=== PATIENT | female | born 1945 | race Caucasian/White ===

== ENCOUNTER 2022-07-27 20:31 | Emergency (ER) | payer MEDICARE, OTHER ==
[2022-07-27] MEDS ORDERED: Adacel Vial IM ONE ×2 (21:51→21:58)
[2022-07-27 21:53] VITALS: BP 171/82; PULSE 71; O2SAT 94
--- NOTE | 2022-07-27 22:24 | ERPHSYRPT ---
- History of Present Illness Source: patient Exam Limitations: no limitations Patient Subjective Stated Complaint: pt states "I was walking down the stairs and lost my balance, I grabbed the rail and there was a bolt sticking out and I cut my finger on it. This happened around 230 this afternoon. I cleaned it, put neosporin on it, and applied bandage. Triage Nursing Assessment: pt ambulated into room 5 after standing on scales for weight acquisition. pt is alert and oriented times three, able to move all extremities. gait is independent, slow and steady, resp even and unlabored, and pt is able to speak in complete sentences. left ring finger skin tear approx 1.5cm x 0.3, bruising noted around skin tear, no active bleeding, dried blood on removed bandage. Physician History: 77 yo WF w L 4th digit ventral skin tear which occurred at home on an exposed bolt on a handrail at 14:30 today. Pain is mild, and other injuries are denied. She will be given a Tdap in ER. Occurred: just prior to arrival Method of Injury: other (Finger vs bolt) Quality: constant Severity of Pain-Max: mild Severity of Pain-Current: mild Extremities Pain Location: 4th finger: left Modifying Factors: Improves With: movement Associated Symptoms: none Allergies/Adverse Reactions: No Known Drug Allergies Allergy (Unverified 08/27/19 10:28) Home Medications: Aspirin 81 gm Chew [Baby Aspirin 81 mg Chew] 81 mg PO DAILY 10/09/16 [History] Cholecalciferol (Vitamin D3) [Vitamin D3] 2,000 unit PO DAILY 10/09/16 [History] Multivitamin [Multivitamins] 1 each PO DAILY 10/09/16 [History] Ubidecarenone [Coq10] 50 mg PO DAILY 10/09/16 [History] methIMAzole [Northyx] 5 mg PO DAILY 10/09/16 [History] Alirocumab [Praluent Pen] 150 mg SQ WEEKLY 08/27/19 [History] Omeprazole 40 mg PO DAILY 08/27/19 [History] Dapagliflozin Propanediol [Farxiga] 10 mg PO DAILY 07/27/22 [History] Prednisone 10 mg [Deltasone 10 mg] 10 mg PO DAILY 07/27/22 [History] Propranolol HCl [Propranolol HCl ER] 80 mg PO DAILY 07/27/22 [History] Hx Tetanus, Diphtheria Vaccination/Date Given: Yes Hx Influenza Vaccination/Date Given: Yes Hx Pneumococcal Vaccination/Date Given: Yes Immunizations Up to Date: Yes Travel Risk - International Travel Have you traveled outside of the country in past 3 weeks: No - Coronavirus Screening Are you exhibiting any of the following symptoms?: No Close contact with a COVID-19 positive Pt in past 14-21 Days: No - Vaccine Status Have you recieved a Covid-19 vaccination: Yes Medical Instructor: Moderna - Vaccination Dates Date of 2cond Vaccination (if applicable): 2020 - Review of Systems Constitutional: No Symptoms Eyes: No Symptoms Ears, Nose, & Throat: No Symptoms Respiratory: No Symptoms Abdominal/Gastrointestinal: No Symptoms Genitourinary Symptoms: No Symptoms Skin: No Symptoms Neurological: No Symptoms Psychological: No Symptoms Endocrine: No Symptoms Hematologic/Lymphatic: No Symptoms Immunological/Allergic: No Symptoms - Past Medical History Pertinent Past Medical History: Yes Neurological History: No Pertinent History ENT History: No Pertinent History Cardiac History: High Cholesterol, Hypertension Respiratory History: No Pertinent History Endocrine Medical History: Hypothyroidism Musculoskeletal History: Osteoarthritis GI Medical History: GERD, Other History: No Pertinent History Psycho-Social History: No Pertinent History Female Reproductive Disorders: Breast Cancer Other Medical History: B TKA, R toe numbness with prolonged standing. History of L hip bursitis, - Past Surgical History Past Surgical History: Yes Neuro Surgical History: No Pertinent History Cardiac: No Pertinent History Respiratory: No Pertinent History Gastrointestinal: Cholecystectomy Genitourinary: No Pertinent History Musculoskeletal: Joint Replacement Female Surgical History: Mastectomy Other Surgical History: bilateral mastectomy lymph node bx not radical. right knee replacement and left knee replacement,colonoscopy and EGD, - Social History Smoking Status: Never smoker Exposure to second hand smoke: No Drug Use: none Patient Lives Alone: No - Nursing Vital Signs Nursing Vital Signs: Initial Vital Signs Temperature 97.5 F 07/27/22 21:42 Pulse Rate 71 07/27/22 21:42 Respiratory Rate 18 07/27/22 21:42 Blood Pressure 171/82 07/27/22 21:42 O2 Sat by Pulse Oximetry 94 L 07/27/22 21:42 Pain Scale Pain Intensity 2 Hypertensive - Physical Exam General Appearance: no apparent distress Eyes, Ears, Nose, Throat Exam: normal ENT inspection, TMs normal, pharynx nor mal, moist mucous membranes Neck Exam: normal inspection, non-tender, supple, full range of motion, No Brudzinski, No Kernig's, No meningismus Cardiovascular/Respiratory Exam: normal breath sounds, regular rate/rhythm, heart sounds normal Abdominal Exam: non-tender, soft Back Exam: normal inspection, No vertebral tenderness Shoulder Exam: normal inspection, non-tender, no evidence of injury Elbow/Forearm Exam: normal inspection, non-tender, no evidence of injury Wrist Exam: normal inspection, non-tender, no evidence of injury Hand Exam: laceration (Superficial skin tear L ventral 4th digit/Good hemostasis/Good distal capillary return and sensation/FROM) Mental Status Exam: alert, oriented x 3, cooperative Skin Exam: normal color, warm, dry SpO2 Interpretation: normal SpO2: 94 O2 Delivery: Room Air Procedures - Laceration/Wound Repair Left Volar Finger Wound Location: Left Wound Length (cm): 1 Wound's Depth, Shape: superficial (Skin tear) Wound Explored: clean Wound Repaired With: Steri-strips (Per nursing/NVI) - Course Nursing assessment & vital signs reviewed: Yes Ordered Tests: Medication Summary Discontinued Medications Generic Name Dose Route Start Last Admin Trade Name Freq PRN Reason Stop Dose Admin Diphtheria/Tetanus/Acell Pertussis 0.5 ml 07/27/22 21:51 07/27/22 22:12 Tdap --Diph,Pertuss(Acell),Tet Vac/Pf 0.5 Ml Vial IM 07/27/22 21:52 0.5 ml .ONCE ONE Administration Diphtheria/Tetanus/Acell Pertussis Confirm 07/27/22 21:58 Tdap --Diph,Pertuss(Acell),Tet Vac/Pf 0.5 Ml Vial Administered 07/27/22 21:59 Dose 0.5 ml IM .STK-MED ONE - Progress Progress: improved Progress Note: 07/27/22 23:53 Nursing note and vital signs reviewed No food or housing insecurities noted Laceration is a superficial skin tear Steri-stripped per nursing/NVI Tdap given Counseled pt/family regarding: diagnosis, need for follow-up Medical Desision Making - Risk of complications Low Risk: Low risk of morbidity from additional dx testing or treatment - Departure Departure Disposition: Home Clinical Impression: Skin tear Condition: Stable Critical Care Time: No Referrals: VALERIE RODRIGUEZ [Primary Care Provider] - Follow up/PCP as directed Instructions: Wound Care (DC) Additional Instructions: Keep skin tear dry for 2 days Then gently wash 1-2 times a day gently w mild soap/water Watch for signs of infection-increasing redness/any pus/increasing swelling/temperature greater than 100.5 Keep steri-strips on until they fall off or 2 weeks
== END 2022-07-27 22:40 | disposition home or self-care (01) ==
LOC: ED 20:31
DX: S61.215A Laceration without foreign body of left ring finger without damage to nail, initial encounter (principal); W26.8XXA Contact with other sharp object(s), not elsewhere classified, initial encounter; E78.5 Hyperlipidemia, unspecified; I10 Essential (primary) hypertension; Z79.52 Long term (current) use of systemic steroids; Z79.899 Other long term (current) drug therapy; Z23 Encounter for immunization
CPT/HCPCS: 90471; 90715; 99282